=== PATIENT | male | born 1950 | race Caucasian/White ===

== ENCOUNTER 2016-12-26 09:52 | Inpatient (IN) | payer OTHER ==
[~2016-12-26] VITALS: Ht 162.6 cm; Wt 66.8 kg
[~2016-12-26 09:52] MED LIST: BENADRYL25 MG PO; CINNAMON500 MG PO; COUMADIN1 MG PO; Coumadin,Jantoven PO; FISH OIL CONC1 EACH PO; Feosol PO; Fish Oil PO; Flomax PO; GLIPIZIDE ER2.5 MG PO; GLUCOPHAGE1000 MG PO; Glucophage PO; IRON325 M1 PO; LO-DOSE ASPIRIN81 M1 PO; ONE DAILY TABL1 EAC1 PO; OXYCODONE HCL5 MG PO; SENNA-TIME S T1 EACH PO; Senokot S,Pericolace PO; TYLENOL REGULA325 MG PO; Theragran PO; Tylenol Extra Streng PO; Vicodin,Norco 5/325 PO
[2016-12-26 10:29] LABS: HEMATOCRIT 36.5 % (38.0-50.0); MCH 27.1 PG (29.0-34.0); MCHC 33.2 G/DL (30.0-36.0); MCV 81.8 FL (86-99); MEAN PLAT.VOLUME 9.4 uM^3 (9.0-12.4); PLATELET COUNT 381 K/uL (156-360); RBC DIS.WIDTH-CV 13.7 % (11.8-14.6); RED BLOOD COUNT 4.46 M/uL (4.00-5.50); WHITE BLOOD COUNT 13.3 K/uL (4.1-10.2)
[2016-12-26 10:42] LABS: CHLORIDE 96 mEq/L (99-109); POTASSIUM 3.8 mEq/L (3.7-5.4); SODIUM 136 mEq/L (136-147)
[2016-12-26 10:44] LABS: GLUCOSE 263 mg/dL (70-99)
[2016-12-26 10:45] LABS: ANION GAP 15 MEQ/L (2-14)
[2016-12-26 10:48] LABS: GFR ESTIMATE (CALCULATED) > 59 mL/min/
[2016-12-26 10:49] LABS: UREA NITROGEN (BUN) 18 mg/dL (9-23)
[2016-12-26 12:12] LABS: APPEARANCE CLOUDY-BLOODY; MONONUCLEAR WBC'S 7 %; POLYNUCLEAR WBC'S 93 % (0-25); RED CELL COUNT 20000 /MM^3 (0-1); SYNOVIAL FLUID EOSINOPHILS 0 % (0-25); WHITE CELL COUNT 21250 /MM^3 (0-200.0)
[2016-12-26 12:16] LABS: CRYSTALS NO CRYSTALS SEEN
[2016-12-26 12:28] LABS: ERTH.SED.RATE 105 MM/HR (0-20)
[2016-12-26 12:40] LABS: C-REACTIVE PROTEIN > 240.0 MG/L (0-10)
[2016-12-26] MEDS ORDERED: METFORMIN HCL500 M1 PO (14:38)
[2016-12-26] MEDS ORDERED: AZITHROMYCIN500 M1 PO (14:39)
[2016-12-26] MEDS ORDERED: ASPIR-LOW81 MG PO (14:39)
[2016-12-26] MEDS ORDERED: RAMIPRIL5 MG PO (14:39)
[2016-12-26] MEDS ORDERED: PHENERGAN-CODE120 ML PO (14:40)
[2016-12-26 17:26] LABS: APPEARANCE HAZY-YELLOW; RED CELL COUNT 11000 /MM^3 (0-1); WHITE CELL COUNT 12920 /MM^3 (0-200.0)
[2016-12-26 17:28] LABS: MONO RAW COUNT 7; MONONUCLEAR WBC'S 7 %; POLY RAW COUNT 93; POLYNUCLEAR WBC'S 93 % (0-25); SYNOVIAL FLUID EOSINOPHILS 0 % (0-25)
[2016-12-26 19:07] LABS: URIC ACID 5.1 mg/dL (3.1-9.2)
[2016-12-26 22:17] LABS: POINT-OF-CARE METER ID UU13113675; POINT-OF-CARE USER ID ADMSLT55
[2016-12-27 04:31] VITALS: BP 188/95
[2016-12-27 06:14] LABS: POINT-OF-CARE METER ID UU14208753
[2016-12-27 06:45] LABS: HEMATOCRIT 35.1 % (38.0-50.0); MCV 82.2 FL (86-99)
[2016-12-27 07:23] LABS: ANION GAP 14 MEQ/L (2-14); CHLORIDE 99 MEQ/L (99-109); GFR ESTIMATE (CALCULATED) > 59 mL/min/; GLUCOSE 392 mg/dL (70-99); POTASSIUM 4.6 MEQ/L (3.7-5.4); SAMPLE HEMOLYSIS CHECK 0; SAMPLE ICTERIC CHECK 0; SAMPLE LIPEMIA CHECK 0; SODIUM 136 MEQ/L (136-147); UREA NITROGEN (BUN) 19 mg/dL (9-23)
[2016-12-27 08:52] VITALS: BP 175/68
[2016-12-27 10:01] LABS: LYME DISEASE SEROLOGY SCREEN NEGATIVE (NEGATIVE)
[2016-12-27 11:36] LABS: POINT-OF-CARE METER ID UU14188577
[2016-12-27 14:54] VITALS: BP 180/92
[2016-12-27 15:47] VITALS: BP 161/79
[2016-12-27 15:58] LABS: POINT-OF-CARE METER ID UU14208753
[2016-12-27 20:26] VITALS: BP 158/77
[2016-12-27 23:51] VITALS: BP 140/77
[2016-12-28] VITALS (9 sets, daily range): BP systolic 160–198; BP diastolic 68–96
[2016-12-28 06:31] LABS: POINT-OF-CARE METER ID UU14208753
[2016-12-28 07:14] LABS: HEMATOCRIT 31.1 % (38.0-50.0); MCV 82.9 FL (86-99)
[2016-12-28] MEDS ORDERED: ENDOCET 5-3251 EACH PO (07:59)
[2016-12-28 11:53] LABS: POINT-OF-CARE METER ID UU14208753
[2016-12-28 19:14] LABS: EOSINOPHIL (%) 0.1 % (0-5); HEMATOCRIT 36.2 % (38.0-50.0); IMMATURE GRANULOCYTE (%) 0.6 % (0.0-0.7); IMMATURE GRANULOCYTE COUNT 0.1 K/uL; INSTRUMENT ABS NEUTROPHIL CT 10.5 K/uL; LYMPHOCYTE COUNT 1.7 K/uL (1.0-2.8); MCH 27.1 PG (29.0-34.0); MCHC 33.4 G/DL (30.0-36.0); MEAN PLAT.VOLUME 9.3 uM^3 (9.0-12.4); MONOCYTE (%) 11.6 % (3-12); MONOCYTE COUNT 1.6 K/uL (0-0.8); NEUTROPHIL (%) 75.2 % (45-76); NEUTROPHIL COUNT 10.5 K/uL (1.8-6.4); PLATELET COUNT 422 K/uL (156-360); RBC DIS.WIDTH-CV 13.9 % (11.8-14.6); RBC DIS.WIDTH-SD 40.9 % (39-53); RED BLOOD COUNT 4.47 M/uL (4.00-5.50)
[2016-12-28 19:26] LABS: ANION GAP 12 MEQ/L (2-14); CHLORIDE 96 MEQ/L (99-109); POTASSIUM 3.9 MEQ/L (3.7-5.4); SAMPLE HEMOLYSIS CHECK 0; SAMPLE ICTERIC CHECK 0; SAMPLE LIPEMIA CHECK 0; SODIUM 130 MEQ/L (136-147)
[2016-12-28 19:31] LABS: GFR ESTIMATE (CALCULATED) > 59 mL/min/; GLUCOSE 241 mg/dL (70-99); UREA NITROGEN (BUN) 17 mg/dL (9-23)
[2016-12-28 21:43] LABS: POINT-OF-CARE METER ID UU14208753
[2016-12-29 04:08] VITALS: BP 172/82
[2016-12-29 06:39] LABS: POINT-OF-CARE METER ID UU14149397
[2016-12-29 06:58] LABS: BASOPHIL COUNT 0.1 K/uL (0-0.1); EOSINOPHIL (%) 0.4 % (0-5); EOSINOPHIL COUNT 0.1 K/uL (0-0.3); HEMATOCRIT 35.7 % (38.0-50.0); IMMATURE GRANULOCYTE (%) 0.6 % (0.0-0.7); IMMATURE GRANULOCYTE COUNT 0.1 K/uL; INSTRUMENT ABS NEUTROPHIL CT 9.2 K/uL; LYMPHOCYTE COUNT 1.7 K/uL (1.0-2.8); MCH 26.7 PG (29.0-34.0); MCHC 32.5 G/DL (30.0-36.0); MCV 82.3 FL (86-99); MONOCYTE (%) 12.7 % (3-12); MONOCYTE COUNT 1.6 K/uL (0-0.8); NEUTROPHIL (%) 72.3 % (45-76); NEUTROPHIL COUNT 9.2 K/uL (1.8-6.4); PLATELET COUNT 377 K/uL (156-360); RBC DIS.WIDTH-CV 14.1 % (11.8-14.6); RBC DIS.WIDTH-SD 42.1 % (39-53); RED BLOOD COUNT 4.34 M/uL (4.00-5.50); WHITE BLOOD COUNT 12.7 K/uL (4.1-10.2)
[2016-12-29 07:22] LABS: ANION GAP 11 MEQ/L (2-14); CHLORIDE 97 MEQ/L (99-109); GFR ESTIMATE (CALCULATED) > 59 mL/min/; GLUCOSE 239 mg/dL (70-99); POTASSIUM 4.5 MEQ/L (3.7-5.4); SAMPLE HEMOLYSIS CHECK 0; SAMPLE ICTERIC CHECK 0; SAMPLE LIPEMIA CHECK 0; SODIUM 135 MEQ/L (136-147); UREA NITROGEN (BUN) 16 mg/dL (9-23)
[2016-12-29 08:07] VITALS: BP 141/71
[2016-12-29 12:14] VITALS: BP 170/79
[2016-12-29 12:15] VITALS: BP 178/80
[2016-12-29] MEDS ORDERED: NORVASC10 MG PO (13:00)
[2016-12-29 13:11] VITALS: BP 166/75
== END 2016-12-29 16:30 | disposition home or self-care (01) | DRG 489 ==
LOC: EME 09:52 → EDOF 18:28 → 3EAST 18:28
PROVIDERS: Emergency Medicine; Hospitalist; Orthopaedic Surgery Sports Medicine
PROC: 0SBC0ZZ Excision of Right Knee Joint, Open Approach (ICD-10-PCS; principal; 2016-12-26)
PROC: 0S9C3ZX Drainage of Right Knee Joint, Percutaneous Approach, Diagnostic (ICD-10-PCS; principal; 2016-12-26)
DX: M00.9 Pyogenic arthritis, unspecified (principal); M23.41 Loose body in knee, right knee; I10 Essential (primary) hypertension; R00.0 Tachycardia, unspecified; M17.11 Unilateral primary osteoarthritis, right knee; E11.9 Type 2 diabetes mellitus without complications; Z96.653 Presence of artificial knee joint, bilateral; Z79.4 Long term (current) use of insulin; Z87.442 Personal history of urinary calculi
CPT/HCPCS: 71010; 73560; 80048; 82948; 83605; 84550; 85014; 85018; 85025; 85027; 85651; 86038; 86140; 86430; 86618; 86812 90; 86900; 86901; 87040; 87205; 89051; 89060; 93306; 97530 GO; 99281; 99285; G0378; G8978 GP CI; G8979 GP CH; G8987 GO CI; G8988 GO CH; J0171; J0330; J0360; J0690; J0696; J1100; J1170; J1650; J1815; J2405; J3010; J3370; J7030; J7050